=== PATIENT | female | born 1980 | race Caucasian/White ===

== ENCOUNTER → 2018-03-19 | Outpatient (REF) | payer OTHER ==
[2018-03-25 14:17] LABS: HPV HYBRID CAPTURE II Negative (Negative)
== END ==
LOC: M LAB REF 03-20 15:08
DX: Z01.419 Encounter for gynecological examination (general) (routine) without abnormal findings (principal); Z11.51 Encounter for screening for human papillomavirus (HPV)

== ENCOUNTER → 2019-06-22 | Outpatient (CLI) | payer BC, OTHER ==
[2019-06-22 20:24] LABS: FREE T4 1.23 NG/DL (0.76-1.46); THYROID STIMULATING HORMONE 0.479 uIU/ML (0.358-3.740)
[2019-06-25 14:09] LABS: HPV HYBRID CAPTURE II Negative (Negative)
== END ==
LOC: M LAB 16:31
PROVIDERS: ATTEND Advanced Practice Midwife
DX: N84.1 Polyp of cervix uteri (principal); Z12.4 Encounter for screening for malignant neoplasm of cervix; R30.0 Dysuria; N92.0 Excessive and frequent menstruation with regular cycle; Z13.29 Encounter for screening for other suspected endocrine disorder
CPT/HCPCS: 84439; 84443; 87086; 87624; 88305; G0123

== ENCOUNTER → 2021-01-02 | Outpatient (REF) | payer BC, OTHER | LOC: M SFHCWAGY 10:07 | PROVIDERS: ATTEND Nurse Practitioner Women's Health | DX: Z12.4 Encounter for screening for malignant neoplasm of cervix (principal) ==

== ENCOUNTER → 2021-11-12 | Outpatient (CLI) | payer BC, OTHER | LOC: M WHC 07:01 | PROVIDERS: ATTEND Nurse Practitioner Women's Health | DX: N93.9 Abnormal uterine and vaginal bleeding, unspecified (principal); D39.11 Neoplasm of uncertain behavior of right ovary ==

== ENCOUNTER → 2022-01-08 | Outpatient (CLI) | payer BC | LOC: M WHC 09:58 | PROVIDERS: ATTEND Obstetrics & Gynecology | DX: N83.201 Unspecified ovarian cyst, right side (principal) ==

== ENCOUNTER → 2022-01-14 | Outpatient (CLI) | payer BC ==
[2022-01-14 16:24] LABS: FREE T4 1.09 NG/DL (0.76-1.46); LDH LACTATE DEHYDROGENASE 196 U/L (84-246); THYROID STIMULATING HORMONE 0.961 uIU/ML (0.358-3.740)
[2022-01-14 16:53] LABS: CA19-9 TUMOR MARKER,CARBOHYDRA 13.4 U/ML (<35.0)
[2022-01-14 23:52] LABS: CA 125 19.9 U/ML (<30.2)
== END ==
LOC: M WUC 14:16
PROVIDERS: ATTEND Obstetrics & Gynecology
DX: N83.8 Other noninflammatory disorders of ovary, fallopian tube and broad ligament (principal); N93.9 Abnormal uterine and vaginal bleeding, unspecified

== ENCOUNTER → 2022-08-30 | Outpatient (CLI) | payer OTHER | LOC: M RAD 07:27 | PROVIDERS: ATTEND Nurse Practitioner Family | DX: G43.909 Migraine, unspecified, not intractable, without status migrainosus (principal) ==

== ENCOUNTER 2023-01-13 19:49 | Emergency (ER) | payer OTHER, BC ==
[~2023-01-13] VITALS: Ht 165.1 cm; Wt 85.0 kg
[2023-01-13] MEDS ORDERED: SUMA100T2 PO (19:57)
[2023-01-13] MEDS ORDERED: TOPI25CA5 PO (19:57)
[2023-01-13] MEDS ORDERED: IBUP200C28 PO (19:58)
[2023-01-14 01:09] VITALS: BP 138/72
[2023-01-14] MEDS ORDERED: CEPH500T PO (14:03)
== END 2023-01-14 02:01 | disposition left against medical advice (07) ==
LOC: M ED 19:49
DX: Z53.21 Procedure and treatment not carried out due to patient leaving prior to being seen by health care provider (principal); N39.0 Urinary tract infection, site not specified; G43.909 Migraine, unspecified, not intractable, without status migrainosus; N80.9 Endometriosis, unspecified; Z79.899 Other long term (current) drug therapy

== ENCOUNTER 2023-01-14 10:12 | Emergency (ER) | payer OTHER, BC ==
[~2023-01-14] VITALS: Ht 165.1 cm; Wt 84.3 kg
[2023-01-14 10:12] VITALS: BP 135/79
[~2023-01-14 10:12] MED LIST: IBUP200C28 PO; SUMA100T2 PO; TOPI25CA5 PO
[2023-01-14] MEDS ORDERED: CEPH500T PO (14:03)
== END 2023-01-14 14:17 | disposition home or self-care (01) ==
LOC: M ED 10:12
DX: N39.0 Urinary tract infection, site not specified (principal); G43.909 Migraine, unspecified, not intractable, without status migrainosus; N80.9 Endometriosis, unspecified; Z79.899 Other long term (current) drug therapy

== ENCOUNTER → 2023-02-17 | Outpatient (REF) | payer BC, OTHER ==
[~2023-02-17] MED LIST changes: +C-251TAB PO; +CEPH500T PO; +COLA100C5 PO; +FERR325T81 PO; +IBUP80TA PO; +MAGN400C PO; +ONDA4TAB6 PO; +PERCOCET PO; +VITA1TAB35 PO; +VITA500C24 PO
== END ==
LOC: M SFHCWAGY 10:35
PROVIDERS: ATTEND Obstetrics & Gynecology
DX: D26.1 Other benign neoplasm of corpus uteri (principal)

== ENCOUNTER 2023-02-26 07:14 | Observation (INO) | payer OTHER ==
[2023-02-26] VITALS (8 sets, daily range): BP systolic 98–118; BP diastolic 58–71
[~2023-02-26] VITALS: Ht 165.1 cm; Wt 82.1 kg
[~2023-02-26 07:14] MED LIST changes: -COLA100C5 PO; -IBUP80TA PO; +LR 1,000 ML IV ONE; -ONDA4TAB6 PO; -PERCOCET PO; +ceFAZolin SOD 2 GM in IV 1 EA IV ONE
[2023-02-26] MEDS ORDERED: LR 1,000 ML IV SCH ×2 (07:55→12:20)
[2023-02-26] MEDS: LR 1,000 ML IV SCH ×2 (08:00→15:29)
[2023-02-26 08:04] LABS: HEMATOCRIT 37.1 % (36.0-47.0); MEAN CORPUSCULAR HEMOGLOBIN 26.7 pg (27.0-33.0); MEAN CORPUSCULAR HGB CONC 32.3 g/dl (32.0-36.5); MEAN CORPUSCULAR VOLUME 82.4 fl (80.0-96.0); PLATELET COUNT, AUTOMATED 344 10^3/uL (150-450)
[2023-02-26] MEDS ORDERED: fentaNYL 100 MCG/2 ML INJECTION As Ordered ONE ×2 (08:09→09:31)
[2023-02-26] MEDS ORDERED: ROCURONIUM BROMIDE 50MG/5ML VIAL As Ordered ONE ×2 (08:09→09:54)
[2023-02-26] MEDS ORDERED: MIDAZOLAM INJ 2MG/2ML VIAL As Ordered ONE (08:09)
[2023-02-26] MEDS ORDERED: LIDOCAINE 2% 100MG/5ML SDV (FOR ANES.) As Ordered ONE (08:09)
[2023-02-26] MEDS ORDERED: propofoL 200 MG/20 ML VIAL As Ordered ONE (08:09)
[2023-02-26] MEDS ORDERED: ONDANSETRON 4MG 2ML VIAL As Ordered ONE (08:10)
[2023-02-26] MEDS ORDERED: ACETAMINOPHEN 1000MG 100ML IV BAG As Ordered ONE (08:10)
[2023-02-26] MEDS ORDERED: METHYLENE BLUE 0.5% (5MG/ML) 10 ML AMP (PROVAYBLUE) As Ordered ONE (08:54)
[2023-02-26] MEDS ORDERED: BUPIVACAINE HCL 0.25% 30ML VIAL As Ordered ONE (08:54)
[2023-02-26] MEDS ORDERED: SUGAMMADEX SODIUM 500 MG/5 ML VIAL (BRIDION) As Ordered ONE (09:31)
[2023-02-26] MEDS ORDERED: KETOROLAC 60MG 2ML VIAL As Ordered ONE (09:31)
[2023-02-26] MEDS ORDERED: DESFLURANE 240 ML INHALANT As Ordered ONE (10:54)
[2023-02-26] MEDS ORDERED: oxyCODONE 5MG TAB PO PRN (12:20)
[2023-02-26] MEDS ORDERED: fentaNYL 100 MCG/2 ML INJECTION IV PRN (12:20)
[2023-02-26] MEDS ORDERED: ONDANSETRON 4MG 2ML VIAL IV PRN (12:20)
[2023-02-26] MEDS ORDERED: MORPHINE 4 MG/ML 1ML VIAL IV PRN (12:25)
[2023-02-26] MEDS ORDERED: PERCOCET 5MG/325MG TAB PO PRN (12:25)
[2023-02-26] MEDS ORDERED: PROMETHAZINE 25MG/ML 1ML VIAL IV PRN (12:25)
[2023-02-26] MEDS ORDERED: PERCOCET PO (12:36)
[2023-02-26] MEDS ORDERED: IBUP80TA PO (12:36)
[2023-02-26] MEDS ORDERED: COLA100C5 PO (12:36)
[2023-02-26] MEDS ORDERED: ONDA4TAB6 PO (12:37)
[2023-02-26] MEDS: PERCOCET 5MG/325MG TAB PO PRN ×2 (16:29→23:29)
[2023-02-26] MEDS: KETOROLAC 30 MG/ML 1ML VIAL IV SCH (19:55)
[2023-02-26] MEDS: DOCUSATE SODIUM 100MG CAPSULE PO SCH (20:03)
[2023-02-27] MEDS: KETOROLAC 30 MG/ML 1ML VIAL IV SCH ×2 (01:08→06:51)
[2023-02-27 04:00] VITALS: BP 98/55
[2023-02-27 05:30] VITALS: BP 105/62
[2023-02-27 08:00] VITALS: BP 102/59
[2023-02-27] MEDS: LR 1,000 ML IV SCH (08:00)
[2023-02-27 08:07] LABS: HEMATOCRIT 28.5 % (36.0-47.0); MEAN CORPUSCULAR HGB CONC 32.6 g/dl (32.0-36.5); MEAN CORPUSCULAR VOLUME 82.6 fl (80.0-96.0); PLATELET COUNT, AUTOMATED 251 10^3/uL (150-450); RED BLOOD COUNT 3.45 10^6/uL (4.00-5.40); WHITE BLOOD COUNT 16.7 10^3/uL (4.0-10.0)
[2023-02-27 08:15] LABS: HEMOGLOBIN 9.3 g/dl (12.0-15.5)
[2023-02-27] MEDS ORDERED: ONDANSETRON 4MG 2ML VIAL IV PRN (09:40)
[2023-02-27] MEDS: DOCUSATE SODIUM 100MG CAPSULE PO SCH (11:49)
[2023-02-27 11:50] VITALS: BP 113/58
[2023-02-27] MEDS ORDERED: IBUPROFEN 800 MG TAB PO SCH (14:00)
== END 2023-02-27 16:20 | disposition home or self-care (01) ==
LOC: M SDC 07:14 → M PED 07:15
PROVIDERS: ADMIT Obstetrics & Gynecology; ATTEND Obstetrics & Gynecology
DX: N84.0 Polyp of corpus uteri (principal); N80.121 Deep endometriosis of right ovary; N83.291 Other ovarian cyst, right side; G43.909 Migraine, unspecified, not intractable, without status migrainosus; F43.10 Post-traumatic stress disorder, unspecified; F32.A Depression, unspecified; Z86.16 Personal history of COVID-19; Z79.899 Other long term (current) drug therapy
CPT/HCPCS: 36415; 58571; 85027; 86850; 86900; 86901; 88305; 88307; 96374; 96376; G0378; J0131; J0690; J1100; J1885; J2250; J2405; J3010; Q9968; S2900

== ENCOUNTER 2023-04-13 12:21 | Emergency (ER) | payer BC, OTHER ==
[~2023-04-13] VITALS: Ht 165.1 cm; Wt 82.6 kg
[~2023-04-13 12:21] MED LIST changes: +COLA100C5 PO; +IBUP80TA PO; -LR 1,000 ML IV ONE; +ONDA4TAB6 PO; +PERCOCET PO; -ceFAZolin SOD 2 GM in IV 1 EA IV ONE
[2023-04-13] MEDS ORDERED: NAPR-837 PO (14:18)
[2023-04-13 14:22] VITALS: BP 120/80; TEMP 99.3; O2SAT 96
== END 2023-04-13 14:25 | disposition home or self-care (01) ==
LOC: M ED 12:21
DX: S80.911A Unspecified superficial injury of right knee, initial encounter (principal); G43.909 Migraine, unspecified, not intractable, without status migrainosus; F43.10 Post-traumatic stress disorder, unspecified; Z87.42 Personal history of other diseases of the female genital tract; Y92.009 Unspecified place in unspecified non-institutional (private) residence as the place of occurrence of the external cause; Z79.899 Other long term (current) drug therapy

== ENCOUNTER → 2023-08-21 | Outpatient (CLI) | payer OTHER, BC ==
[~2023-08-21] MED LIST changes: +NAPR-837 PO
== END ==
LOC: M WHC 15:22
PROVIDERS: ATTEND Nurse Practitioner Family
DX: Z12.31 Encounter for screening mammogram for malignant neoplasm of breast (principal)

== ENCOUNTER → 2023-09-02 | Outpatient (CLI) | payer BC, OTHER | LOC: M WHC 07:19 | PROVIDERS: ATTEND Nurse Practitioner Family | DX: Z12.31 Encounter for screening mammogram for malignant neoplasm of breast (principal); N60.11 Diffuse cystic mastopathy of right breast; N60.12 Diffuse cystic mastopathy of left breast ==

== ENCOUNTER → 2024-09-08 | Outpatient (CLI) | payer OTHER ==
[~2024-09-08] MED LIST changes: +ONDA-282 PO; -ONDA4TAB6 PO
== END ==
LOC: M WHC 15:57
PROVIDERS: ATTEND Registered Nurse
DX: Z12.31 Encounter for screening mammogram for malignant neoplasm of breast (principal)

== ENCOUNTER → 2024-09-28 | Outpatient (CLI) | payer OTHER | LOC: M WHC 08:02 | PROVIDERS: ATTEND Registered Nurse | DX: R92.2 Inconclusive mammogram (principal); N60.01 Solitary cyst of right breast | CPT/HCPCS: 76642; 77065; G0279 ==

== ENCOUNTER → 2025-09-29 | Outpatient (CLI) | payer OTHER ==
[~2025-09-29] MED LIST changes: -C-251TAB PO; +VITA250T28 PO
== END ==
LOC: M WHC 07:05
PROVIDERS: ATTEND Registered Nurse
DX: Z12.31 Encounter for screening mammogram for malignant neoplasm of breast (principal); R92.333 Mammographic heterogeneous density, bilateral breasts